=== PATIENT | female | born 1990 ===

== ENCOUNTER 2022-07-21 03:46 | Emergency (ER) | payer OTHER ==
--- OUTSIDE RECORDS SUMMARY | 2022-07-21 03:49 | XMS REPORT | Continuity of Care Document ---
:1990 Author Organization [facility] t Address Formerly [facility] Joe Corrigan [address] [place] [address] Care Team Providers Name Role Phone TANIKA WEIR Primary Care Physician Unavailable TANIKA WEIR Attending Clinician Unavailable Nurse, Web Cbc Int Med Attending Clinician Unavailable Silvestre Solorzano DO Attending Clinician SILVESTRE SOLORZANO Attending Clinician Unavailable Tankia Hudson Attending Clinician Payers Payer Name Policy Type Policy Number Effective Date Expiration Date S kip [facility] [id number] 2019 2022 EMPLOYEE PLAN 00:00:00 00:00:00 Problems Condition Condition Condition Status Onset Resolution Last Treating Co mments Source Name Details Category Date Date Treatment Clinician Date Nexplanon Nexplanon Disease Active Uni vers removal removal 1-15 ity of 00:00: [address] Allergies, Adverse Reactions, Alerts Allergy Allergy Status Severity Reaction(s) Onset Inactive Treating Comm ents Source Name Type Date Date Clinician Ciproflo Propensi Active Nausea Univer s xacin ty to and/or 1-15 ity of (Bulk) adverse Vomiting 00:00: [place] reaction [address] [place] [address] s Branch CIPROFLO DRUG Active N/V Univers XACIN 1-15 ity of (BULK) 00:00: [place] [address] Medical [place] Social History Social Habit Start Date Stop Date Quantity Comments Source Exposure to Not sure [facility] SARS-CoV-2 (event) Medica l Branch Alcohol intake 2021-12-01 2021-12-01 0 /d [facility] 00:00:00 00:00:00 [facility] Sex Ass[birth year] At [birth year] [facility] [place] 00:00:00 00:00:00 Medical Branch Smoking Status Start Date Stop Date Source Never smoker [facility] Medications Ordered Filled Start Stop Current Ordering Indication Dosage Frequency Signature Comments Components Source Medication Medication Date Date Medication? Clinician (SIG) Name Name Nitrofurant 2021- No [id number] 100mg Take 1 Univers oin&Nit. 12-01 capsule by ity of [place] 00:00: 05:59 mouth 2 [place] as 100 mg 00 :00 (two) Medical capsule times Branch daily for 5 days. Nitrofurant 2021- No [id number] 100mg Take 1 Univers oin&Nit. 12-01 capsule by ity of [place] 00:00: 05:59 mouth 2 [place] as 100 mg 00 :00 (two) Medical capsule times Branch daily for 5 days. dextroamphe 2020-11 Yes 20mg Take 20 mg Univers tamine-amph 1-24 by mouth 3 it y of etamine 08:13: (three) [place] (ADDERALL) 44 times Medical 20 mg daily. Branch tablet dextroamphe 2020-11 Yes 20mg Take 20 mg Univers tamine-amph 1-24 by mouth 3 it y of etamine 08:13: (three) [place] (ADDERALL) 44 times Medical 20 mg daily. Branch tablet Immunizations Ordered Filled Immunization Date Status Comments [facility] e Immunization Name Name Varicella 2021-12-04 Completed [place] of (varivax)(chicken 00:00:00 [place] M edical pox) Branch SARS-COV-2 COVID-19 2021-11-17 Completed Unive rsity of PFIZER VACCINE 00:00:00 [facility] SARS-COV-2 COVID-19 2021-11-17 Completed Unive rsity of PFIZER VACCINE 00:00:00 [facility] PPD (TB) 2021-11-06 Completed University 00:00:00 [facility] Varicella 2021-11-06 Completed University (varivax)(chicken 00:00:00 [place] edical pox) [place] Hepatitis A Adult 2021-11-[address] [facility] ity of 00:00:00 [facility] PPD (TB) 2021-11-06 Completed University of 00:00:00 [facility] PPD (TB) 2021-11-06 Completed University of 00:00:00 [facility] Varicella 2021-11-06 Completed University of (varivax)(chicken 00:00:00 [facility] [place] edical pox) [place] Hepatitis A Adult 2021-11-06 Completed Univers ity of 00:00:00 [facility] PPD (TB) 2021-11-06 Completed University of 00:00:00 [facility] TDAP 2021-10-21 Completed University of 00:00:00 [facility] TDAP 2021-10-21 Completed University of 00:00:00 [facility] Influenza Virus 2021-10-19 Completed Universit y of Vaccine Quad IM, 00:00:00 [facility] [place] dical Preserv and ABX Branch Free 6 MO-64 YRS Influenza Virus 2021-10-19 Completed Universit y of Vaccine [place] IM, 00:00:00 [facility] [place] dical Preserv and ABX Branch Free 6 MO-64 YRS SARS-COV-2 COVID-19 2020-12-19 Completed Unive rsity of PFIZER VACCINE 00:00:00 [facility] SARS-COV-2 COVID-19 2020-12-19 Completed Unive rsity of PFIZER VACCINE 00:00:00 [facility] SARS-COV-2 COVID-19 2020-11-27 Completed Unive rsity of PFIZER VACCINE 00:00:00 [facility] SARS-COV-2 COVID-19 2020-11-27 Completed Unive rsity of PFIZER VACCINE 00:00:00 [facility] TDAP 2011-12-07 Completed University of 00:00:00 [facility] TDAP 2011-12-07 Completed University of 00:00:00 [facility] Vital Signs Vital Name Observation Time Observation Value Comments Source Systolic blood 2021-12-01 20:54:00 108 mm[Hg] Univer sity of pressure [facility] Diastolic blood 2021-12-01 20:54:00 74 mm[Hg] Unive rsity of pressure [facility] Heart rate 2021-12-01 20:54:00 102 /min Universi ty of [facility] Body temperature 2021-12-01 20:54:00 36.5 [facility] Respiratory rate 2021-12-01 20:54:00 16 /min [facility] Body height 2021-12-01 20:54:00 154.9 cm [facility] Body weight 2021-12-01 20:54:00 58.922 kg [facility] BMI 2021-12-01 20:54:00 24.54 kg/m2 [facility] Oxygen saturation in 2021-12-01 20:54:00 100 /min [facility] Arterial blood by [facility] Pulse oximetry [place] Procedures Procedure Date / Time Performed Performing Clinician Sourc e VARICELLA 2021-12-04 17:16:53 Tanika Weir [facility] (VARIVAX)([facility] Branch POX) VACCINE Encounters Start End Encounter Admission Attending Care Care Encounter Source Date/Time Date/Time Type Type Clinicians Facility Department ID 2022-05-17 2022-05-17 Outpatient R [facility] [id number] Univers 15:40:00 15:40:00 [id number] antwon [facility] 2022-05-17 2022-05-17 Outpatient R DESTIN [facility] [id number] Univers 15:40:00 15:40:00 TANIKA hobbs [facility] 2021-12-04 2021-12-04 Nurse Nurse, Kevon [facility] [id number] Univers 10:00:00 10:20:00 Visit Silvestre Solorzano [facility] [id number] ity of SPECIALTY [id number] [facility] CARE - [id number] [facility] 231 Branch 2021-12-04 2021-12-04 Outpatient R SHAMA [facility] [id number] Univers 10:00:00 10:00:00 SILVESTRE hobbs [facility] 2021-12-01 2021-12-01 Office [place] [facility] [id number] Univers 14:30:00 15:00:00 Visit Tanika [facility] [id number] it y of Radha SPECIALTY [id number] [facility] CARE - [id number] [place] [address] Branch 2021-12-01 2021-12-01 Outpatient Justin WEIR [facility] [id number] Univers 14:30:00 14:30:00 TANIKA hobbs of [facility] Results This patient has no known results.
--- NOTE | 2022-07-21 04:40 | ER ---
Nurse's Notes [facility] Name: Diana Segovia Age: 31 yrs Sex: Female : 1990 Arrival Date: 07/21/2022 Time: 03:53 Bed 17 Private MD: Diagnosis: Acute stress reaction;Attention-deficit hyperactivity disorder, unspecified type Presentation: 07/21 04:23 Chief complaint: EMS states: toned out by [employer]. Pt stated to plice that she had come lg3 home and her Adderall bottle was missing so she called 911. when police arrived she was walking down the street, mumbling and had apparent altered mental status. Pt agreed to be brought to ER by EMS but refused all medical intervention prior to arrival. Coronavirus screen: Client denies travel out of the [place] in the last 14 days. At this time, the client does not indicate any symptoms associated with coronavirus-19. Ebola Screen: No symptoms or risks identified at this time. Risk Assessment: Do you want to hurt yourself or someone else? Patient reports no desire to harm self or others. Onset of symptoms is unknown. 04:23 Method Of Arrival: EMS: [facility] lg3 04:23 Acuity: KAMI 4 lg3 Triage Assessment: 04:27 General: Appears in no apparent distress. Behavior is agitated, uncooperative. Pain: lg3 Denies pain. EENT: No deficits noted. Neuro: Level of Consciousness is awake, stuporous. Cardiovascular: No deficits noted. Respiratory: No deficits noted. Respiratory: Airway is patent Respiratory effort is even, unlabored, Respiratory pattern is regular, symmetrical. GI: No deficits noted. : No deficits noted. Derm: No deficits noted. Skin is intact, Skin is dry. Musculoskeletal: No deficits noted. Circulation, motion, and sensation intact. Range of motion: intact in all extremities. Historical: - Home Meds: 04:27 Adderall XR Oral 20 mg three times a day [Active]; lg3 - Immunization history:: Adult Immunizations unknown, unable to obtain. - Social history:: Smoking status: unknown. Screenin:30 Abuse screen: Denies threats or abuse. Denies injuries from another. Nutritional lg3 screening: No deficits noted. Tuberculosis screening: No symptoms or risk factors identified. Fall Risk None identified. Assessment: 04:30 General: see triage assessment. pt refused all medical treatment and interventions. lg3 04:55 General: pt uncooperative with all medical personnel. . lg3 Vital Signs: 04:31 lg3 04:31 pt refused vitals lg3 NIH Stroke Scale Scores: 04:33 NIHSS Score: 0 [facility] ED Course: 03:53 Patient arrived in ED. mw2 03:53 Osiel Sheppard MD is Attending Physician. abhishek 04:27 Triage completed. lg3 04:27 Arm band placed on pt refused . lg3 04:30 pt refused all interventions. lg3 04:30 No provider procedures requiring assistance completed. Patient did not have IV access lg3 during this emergency room visit. 04:37 Hunter Moran MD is Referral Physician. [facility] Administered Medications: No medications were administered Medication: 04:31 VIS not applicable for this client. lg3 Outcome: 04:39 Discharge ordered by . abhishek 04:54 Discharged to home ambulatory, with family. lg3 04:54 Condition: unchanged 04:54 Discharge instructions given to family, Instructed on discharge instructions. 04:56 Patient left the ED. lg3 NIH Stroke Scale - NIH Stroke Score Date: 07/21/2022 Time: 04:33 Total Score = 0 1a. Level of Consciousness (LOC) - 0(Alert) 1b. Level of Consciousness (LOC) (Month \T\ Age) - 0(Both) 1c. LOC Commands (Open \T\ Closes Eyes/Stone Processing Machine Operator) - 0(Both) 2. Best Gaze (Lateral Gaze Paresis) - 0(Normal) 3. Visual Field Loss - 0(No visual loss) 4. Facial Palsy - 0(Normal) 5a. Left Arm: Motor (10-second hold) - 0(No drift) 5b. Right Arm: Motor (10-second hold) - 0(No drift) 6a. Left Leg: Motor (5-second hold - always test supine) - 0(No drift) 6b. Right Leg: Motor (5-second hold - always test supine) - 0(No drift) 7. Limb Ataxia (finger/nose \T\ heel/woodward - test with eyes open) - 0(Absent) 8. Sensory Loss (pinprick arms/legs/face) - 0(Normal) 9. Best Language: Aphasia (description/naming/reading) - 0(No aphasia) 10. Dysarthria (speech clarity - read or repeat words) - 0(Normal) 11. Extinction and Inattention (visual/tactile/auditory/spatial/personal) - 0(No abnormality) Initials: abhishek Signatures: Osiel Sheppard MD MD cha [place], MyKena mw2 Cinthia Bynum RN RN lg3
--- NOTE | 2022-07-21 04:41 | EDPHYS ---
Physician Documentation [facility] Name: Diana Segovia Age: 31 yrs Sex: Female : 1990 Arrival Date: 07/21/2022 Time: 03:53 Bed 17 Private MD: ED Physician Osiel Sheppard HPI: 07/21 04:31 This 31 yrs old Female presents to ER via EMS with complaints of acting abhishek differently. 04:31 The patient presents to the emergency department with psychosis. Onset: The abhishek symptoms/episode began/occurred today, yesterday. Past psychiatric history: Prior diagnosis: adhd. Associated signs and symptoms: The patient has no apparent associated signs or symptoms. Severity of symptoms: At their worst the symptoms were mild in the emergency department the symptoms are unchanged. The patient has not experienced similar symptoms in the past. Historical: - Home Meds: : Adderall XR Oral 20 mg three times a day [Active]; lg3 - Immunization history:: Adult Immunizations unknown, unable to obtain. - Social history:: Smoking status: unknown. ROS: 04:33 Constitutional: Negative for fever, chills, and weight loss, Eyes: Negative for injury, abhishek pain, redness, and discharge, ENT: Negative for injury, pain, and discharge, Neck: Negative for injury, pain, and swelling, Cardiovascular: Negative for chest pain, palpitations, and edema, Respiratory: Negative for shortness of breath, cough, wheezing, and pleuritic chest pain, Abdomen/GI: Negative for abdominal pain, nausea, vomiting, diarrhea, and constipation, Back: Negative for injury and pain, : Negative for injury, bleeding, discharge, and swelling, MS/Extremity: Negative for injury and deformity, Skin: Negative for injury, rash, and discoloration, Neuro: Negative for headache, weakness, numbness, tingling, and seizure, Allergy/Immunology: Negative for hives, rash, and allergies, Endocrine: Negative for neck swelling, polydipsia, polyuria, polyphagia, and marked weight changes, Hematologic/Lymphatic: Negative for swollen nodes, abnormal bleeding, and unusual bruising. 04:33 Psych: Positive for anxiety, depression. Exam: 04:33 Constitutional: This is a well developed, well nourished patient who is awake, alert, abhishek and in no acute distress. Head/Face: Normocephalic, atraumatic. Eyes: Pupils equal round and reactive to light, extra-ocular motions intact. Lids and lashes normal. Conjunctiva and sclera are non-icteric and not injected. Cornea within normal limits. Periorbital areas with no swelling, redness, or edema. ENT: Nares patent. No nasal discharge, no septal abnormalities noted. Tympanic membranes are normal and external auditory canals are clear. Oropharynx with no redness, swelling, or masses, exudates, or evidence of obstruction, uvula midline. Mucous membranes moist. Neck: Trachea midline, no thyromegaly or masses palpated, and no cervical lymphadenopathy. Supple, full range of motion without nuchal rigidity, or vertebral point tenderness. No Meningismus. Chest/axilla: Normal chest wall appearance and motion. Nontender with no deformity. No lesions are appreciated. Cardiovascular: Regular rate and rhythm with a normal S1 and S2. No gallops, murmurs, or rubs. Normal PMI, no JVD. No pulse deficits. Respiratory: Lungs have equal breath sounds bilaterally, clear to auscultation and percussion. No rales, rhonchi or wheezes noted. No increased work of breathing, no retractions or nasal flaring. Abdomen/GI: Soft, non-tender, with normal bowel sounds. No distension or tympany. No guarding or rebound. No evidence of tenderness throughout. Back: No spinal tenderness. No costovertebral tenderness. Full range of motion. Skin: Warm, dry with normal turgor. Normal color with no rashes, no lesions, and no evidence of cellulitis. MS/ Extremity: Pulses equal, no cyanosis. Neurovascular intact. Full, normal range of motion. Neuro: Awake and alert, GCS 15, oriented to person, place, time, and situation. Cranial nerves II-XII grossly intact. Motor strength 5/5 in all extremities. Sensory grossly intact. Cerebellar exam normal. Normal gait. 04:33 Psych: Behavior/mood is uncooperative, Affect is animated, Oriented to person, place, time, Patient has no thoughts/intents to harm self or others. Judgement / Insight is normal. Memory is normal. Delusions/hallucinations are present and described as rambling, random thoughts. Vital Signs: 04:31 lg3 04:31 pt refused vitals lg3 NIH Stroke Scale Scores: 04:33 NIHSS Score: 0 abhishek MDM: 03:53 Patient medically screened. abhishek 04:36 Differential diagnosis: acute psychotic break, psychosis secondary to non-compliance. abhishek Data reviewed: vital signs, nurses notes. Data interpreted: school bus monitor: not applicable for this patient encounter. rate is 80 beats/min, rhythm is Pulse oximetry: is not applicable for this patient encounter. Counseling: I had a detailed discussion with the patient and/or guardian regarding: the historical points, exam findings, and any diagnostic results supporting the discharge/admit diagnosis, the need for outpatient follow up, for definitive care, a family practitioner, a psychiatrist. Administered Medications: No medications were administered Disposition Summary: 07/21/22 04:39 Discharge Ordered Location: Home abhishek Problem: new abhishek Symptoms: have improved abhishek Condition: Stable abhishek Diagnosis - Acute stress reaction abhishek - Attention-deficit hyperactivity disorder, unspecified type abhishek Followup: abhishek - With: Private Physician - When: 2 - 3 days - Reason: Recheck today's complaints, Continuance of care, Re-evaluation by your physician Followup: abhishek - With: Hunter Moran MD - When: 2 - 3 days - Reason: Recheck today's complaints, Continuance of care, Re-evaluation by your physician Discharge Instructions: - Discharge Summary Sheet abhishek - Stress, Adult abhishek - Psychosis abhishek - Living With Attention Deficit Hyperactivity Disorder abhishek Forms: - Medication Reconciliation Form abhishek - Thank You Letter abhishek - Antibiotic Education abhishek - Prescription Opioid Use abhishek NIH Stroke Scale - NIH Stroke Score Date: 07/21/2022 Time: 04:33 Total Score = 0 1a. Level of Consciousness (LOC) - 0(Alert) 1b. Level of Consciousness (LOC) (Month \T\ Age) - 0(Both) 1c. LOC Commands (Open \T\ Closes Eyes/Psychiatric Tech) - 0(Both) 2. Best Gaze (Lateral Gaze Paresis) - 0(Normal) 3. Visual Field Loss - 0(No visual loss) 4. Facial Palsy - 0(Normal) 5a. Left Arm: Motor (10-second hold) - 0(No drift) 5b. Right Arm: Motor (10-second hold) - 0(No drift) 6a. Left Leg: Motor (5-second hold - always test supine) - 0(No drift) 6b. Right Leg: Motor (5-second hold - always test supine) - 0(No drift) 7. Limb Ataxia (finger/nose \T\ heel/woodward - test with eyes open) - 0(Absent) 8. Sensory Loss (pinprick arms/legs/face) - 0(Normal) 9. Best Language: Aphasia (description/naming/reading) - 0(No aphasia) 10. Dysarthria (speech clarity - read or repeat words) - 0(Normal) 11. Extinction and Inattention (visual/tactile/auditory/spatial/personal) - 0(No abnormality) Initials: abhishek Signatures: Osiel Sheppard MD MD cha Gibson, Lacie, RN RN lg3
== END 2022-07-21 04:56 | disposition home or self-care (01) ==
LOC: ER 03:46
DX: F43.0 Acute stress reaction (principal); F90.9 Attention-deficit hyperactivity disorder, unspecified type